=== PATIENT | female | born 1975 | race American Indian/Alaskan Native ===

== ENCOUNTER 2019-07-17 06:14 | Emergency (ER) | payer OTHER ==
[2019-07-17] MEDS ORDERED: Albuterol/Ipratropium 3.0-0.5 MG/3 ML Neb Soln NEB ONE (06:37)
--- NOTE | 2019-07-17 06:51 | EDM.PDOC ---
ED HPI GENERAL MEDICAL PROBLEM - General Chief Complaint: Respiratory Problem Stated Complaint: BRONCHITIS Time Seen by Provider: 07/17/19 06:46 Source of Information: Reports: Patient History Limitations: Reports: No Limitations - History of Present Illness INITIAL COMMENTS - FREE TEXT/NARRATIVE: Tia comes into [facility] ED with an escalating cough over the past 24 hrs. There is no productive cough, audible wheezing, fever, chills or sweats. She has a PMH of SLE and takes Prednisone 20 mg daily. With pulmonic relapses, she frequently is administered antibx and higher doses of Prednisone with her MDI. 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 Social & Family History - Family History Family Medical History: Noncontributory - Tobacco Use Smoking Status *Q: Current Every Day Smoker Years of Tobacco use: 1 Packs/Tins Daily: 0.2 - Caffeine Use Caffeine Use: Reports: Coffee - Recreational Drug Use Recreational Drug Use: No ED ROS GENERAL - Review of Systems Review Of Systems: ROS reveals no pertinent complaints other than HPI. ED EXAM, GENERAL - Physical Exam Exam: See Below Exam Limited By: No Limitations General Appearance: Alert, WD/WN, Anxious, Mild Distress, Obese Eye Exam: Bilateral Eye: EOMI, Normal Inspection, PERRL Ears: Normal External Exam Nose: Normal Inspection Throat/Mouth: Normal Inspection, Normal Lips, Normal Teeth, Normal Gums, Normal Oropharynx, Normal Voice, No Airway Compromise Head: Facial Swelling Neck: Normal Inspection, Supple Respiratory/Chest: No Respiratory Distress, No Accessory Muscle Use, Decreased Breath Sounds, Crackles Cardiovascular: Regular Rate, Rhythm GI/Abdominal: Soft, Non-Tender, No Organomegaly, No Distention, No Mass (Female) Exam: Deferred Rectal (Female) Exam: Deferred Back Exam: Normal Inspection Extremities: Normal Inspection Neurological: Alert, Oriented, CN II-XII Intact, Normal Cognition, No Motor/ Sensory Deficits Psychiatric: Normal Affect, Anxious Skin Exam: Warm, Dry, Intact Lymphatic: No Adenopathy Course - Vital Signs Text/Narrative:: Following assessment, I administered a DuoNeb with improvement, and Rocephin 1 gm IM per treatment routine for this patient. Last Recorded V/S: Last Vital Signs Temp 36.8 C 07/17/19 06:20 Pulse 58 L 07/17/19 06:20 Resp 17 07/17/19 06:20 BP 122/81 07/17/19 06:20 Pulse Ox 97 07/17/19 06:20 - Orders/Labs/Meds Orders: Active Orders 24 hr Category Date Time Status RT Aerosol Therapy [RC] ASDIRECTED Care 07/17/19 06:37 Active Meds: Medications Discontinued Medications Generic Name Dose Route Start Last Admin Trade Name Freq PRN Reason Stop Dose Admin Albuterol/Ipratropium 3 ml 07/17/19 06:37 07/17/19 06:40 Duoneb 3.0-0.5 Mg/3 Ml NEB 07/17/19 06:38 3 ml ONETIME ONE Administration Ceftriaxone Sodium 1 gm 07/17/19 06:52 Rocephin IM 07/17/19 06:53 ONETIME ONE Departure - Departure Time of Disposition: 07:10 Disposition: Home, Self-Care 01 Condition: Fair Clinical Impression: Acute exacerbation of chronic obstructive bronchitis Systemic lupus erythematosus Qualifiers: Systemic lupus erythematosus type: unspecified Systemic lupus erythematosus organ involvement: lung involvement Qualified Code(s): M32.13 - Lung involvement in systemic lupus erythematosus - Discharge Information *PRESCRIPTION DRUG MONITORING PROGRAM REVIEWED*: Not Applicable *COPY OF PRESCRIPTION DRUG MONITORING REPORT IN PATIENT JC: Not Applicable Prescriptions: Amoxicillin 500 mg PO TID #20 capsule Referrals: PCP,None [Primary Care Provider] - Forms: ED Department Discharge - Problem List & Annotations (1) Acute exacerbation of chronic obstructive bronchitis SNOMED Code(s): 262860924106151 Code(s): J44.1 - CHRONIC OBSTRUCTIVE PULMONARY DISEASE W (ACUTE) EXACERBATION Status: Acute Current Visit: Yes Annotation/Comment:: Per patient treatment routine, I dispensed Amoxicillin 500 mg tid, and suggested increasing Prednisone 40 mg qd x 5 days. She may continue the Albuterol MDI as directed. (2) Systemic lupus erythematosus SNOMED Code(s): 67756228 Code(s): M32.9 - SYSTEMIC LUPUS ERYTHEMATOSUS, UNSPECIFIED Status: Acute Current Visit: Yes Annotation/Comment:: Monitor for side effects of SLE. Qualifiers: Systemic lupus erythematosus type: unspecified Systemic lupus erythematosus organ involvement: lung involvement Qualified Code(s): M32.13 - Lung involvement in systemic lupus erythematosus - Problem List Review Problem List Initiated/Reviewed/Updated: Yes - My Orders Last 24 Hours: My Active Orders 07/17/19 06:37 RT Aerosol Therapy [RC] ASDIRECTED - Assessment/Plan Last 24 Hours: My Active Orders 07/17/19 06:37 RT Aerosol Therapy [RC] ASDIRECTED Plan: Follow up with Tail Worker if sxs persist.
[2019-07-17] MEDS ORDERED: cefTRIAXone 1 GM Vial IM ONE (06:52)
== END 2019-07-17 07:21 | disposition home or self-care (01) ==
LOC: FB.ED 06:14
DX: J44.1 Chronic obstructive pulmonary disease with (acute) exacerbation (principal); M32.13 Lung involvement in systemic lupus erythematosus; F17.210 Nicotine dependence, cigarettes, uncomplicated; Z88.6 Allergy status to analgesic agent; Z79.899 Other long term (current) drug therapy
CPT/HCPCS: 94640; 96372; 99283; J0696; J7620-GY

== ENCOUNTER 2019-12-18 13:11 | Emergency (ER) | payer MEDICAID, OTHER ==
[2019-12-18] MEDS ORDERED: Amoxicillin/Clavulanate K 875-125 MG Tab PO ONE (13:12)
--- NOTE | 2019-12-18 14:18 | EDM.PDOC ---
ED HPI GENERAL MEDICAL PROBLEM - General Chief Complaint: ENT Problem Stated Complaint: SORETHROAT Time Seen by Provider: 12/18/19 14:15 Source of Information: Reports: Patient History Limitations: Reports: No Limitations - History of Present Illness INITIAL COMMENTS - FREE TEXT/NARRATIVE: Presents with sore throat x 2 days, radiating to neck and ears bilaterally. Associated with chills. No fever or cough. She did receive the flu shot this season. 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 Social & Family History - Family History Family Medical History: Noncontributory - Caffeine Use Caffeine Use: Reports: Coffee ED ROS ENT - Review of Systems Review Of Systems: Comprehensive ROS is negative, except as noted in HPI. ED EXAM, ENT - Physical Exam Exam: See Below Exam Limited By: No Limitations General Appearance: Alert, WD/WN, No Apparent Distress Ears: Normal Canal, Normal TMs Nose: Normal Inspection Mouth/Throat: Pharyngeal Erythema. No: Dry Mucous Membrane, Muffled Voice, Tonsillar Exudates Head: Atraumatic, Normocephalic Neck: Supple, Full Range of Motion, Lymphadenopathy (R), Lymphadenopathy (L) Respiratory/Chest: No Respiratory Distress, Lungs Clear, Normal Breath Sounds Cardiovascular: Regular Rate, Rhythm, No Murmur Back: Full Range of Motion Extremities: Normal Range of Motion Neurological: Alert, Normal Cognition Skin: Warm, Dry, Intact Course - Vital Signs Last Recorded V/S: Last Vital Signs Temp 36.8 C 12/18/19 13:11 Pulse 58 L 12/18/19 13:11 Resp 17 12/18/19 13:11 BP 127/79 12/18/19 13:11 Pulse Ox 98 12/18/19 13:11 - Orders/Labs/Meds Orders: Active Orders 24 hr Category Date Time Status CULTURE STREP A CONFIRMATION [RM] Stat Lab 12/18/19 13:30 Results STREP SCRN A RAPID W CULT CONF [RM] Stat Lab 12/18/19 13:30 Results Microbiology 12/18/19 14:19 Influenza Type A Antigen Screen - Final Nasopharyngeal Swab NEGATIVE INFLUENZA A VIRUS AG REFERENCE RANGE: NEGATIVE Influenza Type B Antigen Screen - Final NEGATIVE INFLUENZA B VIRUS AG REFERENCE RANGE: NEGATIVE 12/18/19 13:30 Group A Streptococcus Rapid Screen - Final Throat NEGATIVE STREP A SCREEN REFERENCE RANGE: NEGATIVE - Re-Assessments/Exams Free Text/Narrative Re-Assessment/Exam: 12/18/19 14:44 Sent home with Augmentin 875 starter pack (#20) Departure - Departure Time of Disposition: 14:43 Disposition: Home, Self-Care 01 Condition: Good Clinical Impression: Pharyngitis Qualifiers: Pharyngitis/tonsillitis etiology: unspecified etiology Qualified Code(s): J02.9 - Acute pharyngitis, unspecified - Discharge Information *PRESCRIPTION DRUG MONITORING PROGRAM REVIEWED*: No *COPY OF PRESCRIPTION DRUG MONITORING REPORT IN PATIENT JC: Not Applicable Instructions: Pharyngitis, [id number] Referrals: PCP,Not In Area [Primary Care Provider] - Forms: ED Department Discharge Additional Instructions: Take Augmentin as directed. Continue Tylenol as needed. Follow up in 2-3 days if symptoms don't improve, sooner if symptoms worsen. Sepsis Event Note - Focused Exam Vital Signs: Vital Signs Temp Pulse Resp BP Pulse Ox 12/18/19 13:11 36.8 C 58 L 17 127/79 98 Date Exam was Performed: 12/18/19 Time Exam was Performed: 14:42 - My Orders Last 24 Hours: My Active Orders 12/18/19 13:30 CULTURE STREP A CONFIRMATION [RM] Stat STREP SCRN A RAPID W CULT CONF [RM] Stat - Assessment/Plan Last 24 Hours: My Active Orders 12/18/19 13:30 CULTURE STREP A CONFIRMATION [RM] Stat STREP SCRN A RAPID W CULT CONF [RM] Stat
[2019-12-18] MEDS ORDERED: cefTRIAXone 1 GM Vial IM ONE (14:51)
== END 2019-12-18 15:28 | disposition home or self-care (01) ==
LOC: FB.ED 13:11
DX: J02.9 Acute pharyngitis, unspecified (principal); Z88.6 Allergy status to analgesic agent
CPT/HCPCS: 87081; 87804; 87880; 96372; 99283; J0696; A9270-GY